=== PATIENT | male | born 1995 | race African-American/Black ===

== ENCOUNTER 2019-05-22 19:33 | Emergency (ER) | payer SELFPAY ==
[2019-05-22] MEDS ORDERED: cloNIDine 0.1 MG TAB ONE (21:31)
[2019-05-22 21:53] LABS: #Basophils 0.1 thou/uL (0.0-0.2); #Eosinphils 0.1 thou/uL (0.0-0.7); #Monocytes 0.7 thou/uL (0.11-0.59); #Neutrophils 3.9 thou/uL (1.40-6.50); %Basophils 1.1 % (0.0-1.0); %Eosinophils 1.7 % (0.0-10.0); %Monocytes 10.3 % (0.0-10.0); Hemoglobin 17.6 g/dL (14.0-18.0); Mean Corpuscular HGB CONC 33.2 g/dL (32.0-36.0); Mean Corpuscular Hemoglobin 30.9 pg (27.0-31.0); Mean Corpuscular Volume 93.1 fL (78.0-98.0); Mean Platelet Volume 7.9 fL (7.4-10.4); Platelet Count 313 thou/uL (130-400); RBC Distribution Width 10.9 % (11.5-14.5); White Blood Cell (WBC) Count 6.8 thou/uL (4.8-10.8)
[2019-05-22 22:11] LABS: ALT (SGPT) 31 U/L (8-55); AST (SGOT) 31 U/L (5-34); Albumin 5.1 g/dL (3.5-5.0); Alkaline Phosphatase 78 U/L (40-110); Anion Gap 18 mmol/L (10-20); BUN (Urea Nitrogen) 21 mg/dL (8.9-20.6); Bilirubin, Total 1.8 mg/dL (0.2-1.2); CK (CPK) 228 U/L (30-200); Calc. Creatinine Clearance 0 mL/min (70-130); Calcium 10.9 mg/dL (7.8-10.44); Carbon Dioxide 28 mmol/L (22-29); Chloride 96 mmol/L (98-107); Estimated GFR-MDRD Greater than 90; Globulin 4.3 g/dL (2.4-3.5); Glucose 95 mg/dL (70-105); Protein, Total 9.4 g/dL (6.0-8.3); Sodium 138 mmol/L (136-145)
== END 2019-05-22 23:11 | disposition home or self-care (01) ==
LOC: ERS 19:33
DX: E86.0 Dehydration (principal); R53.83 Other fatigue; I10 Essential (primary) hypertension; F17.220 Nicotine dependence, chewing tobacco, uncomplicated; Z79.899 Other long term (current) drug therapy
CPT/HCPCS: 80053; 82550; 85025; 93005; 96360; 96361